=== PATIENT | male | born 1970 | race Hispanic/Latino ===

== ENCOUNTER 2019-06-27 13:00 | Observation (INO) | payer OTHER ==
[2019-06-27] VITALS (7 sets, daily range): BP systolic 104–126; BP diastolic 46–72
--- NOTE | 2019-06-27 13:00 | NUR ---
PT TO ROOM VIA EMS
--- NOTE | 2019-06-27 13:31 | NUR ---
DR FORD AT BEDSIDE FOR ASSESSMENT; PT C/O ABD PAIN RATING 10 OUT OF 10; GAURDS X 2 AT [facility]; MONITORING DEVICES IN PLACE; CALL LIGHT WITHIN REACH; WILL CONTINUE TO MONITOR
[2019-06-27 13:54] LABS: HEMATOCRIT 41.2 % (39.0-50.0); HEMOGLOBIN 14.2 g/dl (14.0-18.0); IMMATURE GRANULOCYTES 0.6 % (0.0-5.0); MEAN CELL VOLUME 88.2 fL CALC (80.0-100.0); MEAN CORPUSCULAR HGB 30.4 pG CALC (26.0-32.0); MEAN CORPUSCULAR HGB CONC 34.5 g/L CALC (32.0-36.0); NEUT# 14.4 thou/uL (1.82-7.42); RED BLOOD COUNT 4.67 mill/uL (4.70-6.10); RED CELL DISTRI WIDTH 12.2 % (11.5-15.5)
[2019-06-27 14:11] LABS: ALBUMIN 4.1 g/dL (3.2-5.0); ALKALINE PHOSPHATASE 104 u/l (38-126); AMYLASE 71 u/l (30-110); ANION GAP 17 (6-22 (CALC)); BILIRUBIN, TOTAL 0.8 mg/dL (0.0-1.4); BUN 7 mg/dL (9-20); BUN/CREATININE RATIO 11 (12-20 (CALC)); CARBON DIOXIDE 20 mmol/l (22-30); CHLORIDE 95 mmol/l (95-108); CREATININE 0.7 mg/dL (0.7-1.3); GFR > 60 ML/MIN (>=60 (CALC)); GFR FOR AFR.AMER. > 60 ML/MIN (>=60 (CALC)); LIPASE 31 u/l (23-300); POTASSIUM 3.8 mmol/l (3.5-5.1); SGOT/AST 29 u/l (17-59); SODIUM 128 mmol/l (137-146); TOTAL PROTEIN 7.7 g/dL (6.3-8.2)
[2019-06-27 14:30] LABS: URINE BILIRUBIN - DIPSTICK NEGATIVE (NEGATIVE); URINE BLOOD DIPSTICK NEGATIVE (NEGATIVE); URINE COLOR YELLOW; URINE GLUCOSE - DIPSTICK NEGATIVE (NEGATIVE); URINE KETONE 40 mg/dL (NEGATIVE); URINE LEUK ESTERASE NEGATIVE (NEGATIVE); URINE NITRITE - DIPSTICK NEGATIVE (Negative); URINE PROTEIN - DIPSTICK NEGATIVE (NEG-TRACE); URINE SPECIFIC GRAVITY 1.015; URINE UROBILINOGEN - DIPSTICK 0.2 E.U./dL (0.2)
--- NOTE | 2019-06-27 14:30 | NUR ---
PT RESTING ON STRETCHER; NO S/S OF DISTRESS NOTED; VSS; GAURDS X 2 AT BEDSIDE; CALL LIGHT WITHIN REACH; WILL CONTINUE TO MONITOR
--- NOTE | 2019-06-27 15:30 | NUR ---
PT ASSISTED TO USE OF URINAL, 900ML OF CLEAR YELLOW URINE NOTED; VSS; GAURDS X2 AT BEDSIDE; CALL LIGHT WITHIN REACH; WILL CONTINUE TO MONITOR
--- NOTE | 2019-06-27 16:30 | NUR ---
PT RESTING ON STRETCHER; NO S/S OF DISTRESS NOTED; PT DENIES ANY NEEDS OR PAIN AT THIS TIME; GAURDS AT BEDSIDE; CALL LIGHT WITHIN REACH; WILL COONTINUE TO MONITOR
--- NOTE | 2019-06-27 17:30 | NUR ---
PT PREPARED FOR SX; CLOTHES REMOVED AND GOWN APPLIED; JEWLERY REMOVED; PT INFORMED OF POC
--- NOTE | 2019-06-27 17:58 | NUR ---
OR TEAM AT BEDSIDE; REPORT GIVEN
--- NOTE | 2019-06-27 18:07 | NUR ---
PT OUT OF ED WITH OR TEAM; PT IN STABLE CONDITION AT THIS TIME
--- NOTE | 2019-06-27 20:55 | NUR ---
PT. ARRIVED TO THE FLOOR VIA STRETCHER ACCOMPANIED BY OR NURSE AND GUARDS X2 @2024. ORIENTED TO ROOM,CALL LIGHT, AND POC AND VERBALIZES UNDERSTANDING. SCD'S APPLIED TO BLE. VSS. IV SITE PATENT TO RFA AND LR INFUSING. PT. DENIES PAIN AT THIS TIME. X3 SURGICAL PUNCTURES NOTED TO ABDOMEN WITH DERMABOND INTACT. ICE CHIPS PROVIDED WILL ASSESS HOW HE TOLERATES THIS. VOIDED 450MLS OF URINE IN URINAL. SHACKLE TO RIGHT WRIST NOTED. INSTRUCTED PT. TO CALL FOR ANY AND ALL NEEDS. CALL LIGHT IS IN REACH. WILL CONTINUE TO MONITOR.
--- NOTE | 2019-06-27 22:00 | NUR ---
PT. RESTING IN BED WITH EYES CLOSED; RESP. EVEN AND UNLABORED. CALL LIGHT IS IN REACH.
--- NOTE | 2019-06-27 23:56 | NUR ---
PT. RESTING IN BED WITH NO DISTRESS NOTED; RESP. EVEN AND UNLABORED. GUARDS IN AT BEDSIDE X2. CLEAR LIQUIDS GIVEN TO PT. WILL SEE IF HE CAN TOLERATE THEM TO ADVANCE DIET. SCHED MEDS GIVEN. EDUCATION GIVEN ON INCENTIVE SPIROMETER AND PT. PULLING 750 AND DID 10REPS AT THIS TIME. GOAL SET TO 1000. URINAL EMPTIED. CALL LIGHT IS IN REACH.
--- NOTE | 2019-06-28 02:31 | NUR ---
RESTING IN BED WITH EYES OPEN. NO DISTRESS NOTED; VOICES NO CONCERNS. URINAL EMTPIED. GUARDS AT BEDSIDE. CALL LIGHT IS IN REACH.
[2019-06-28 03:10] VITALS: BP 103/63
--- NOTE | 2019-06-28 03:11 | NUR ---
VSS. NO DISTRESS NOTED;DENIES NEEDS/PAIN. URINAL EMPTIED. GUARDS REMAIN AT BEDSIDE X2. WILL CONTINUE TO MONITOR. CALL LIGHT IS IN REACH.
--- NOTE | 2019-06-28 05:35 | NUR ---
PT. RESTING IN BED, TOLERATED PO FLUIDS WELL THROUGHOUT THE NIGHT. SCHED MEDS GIVEN. INCENTIVE SPIROMETER AND CALL LIGHT IN REACH.
--- NOTE | 2019-06-28 06:10 | NUR ---
PT. AMBULATED DOWN THE 60'S AND 70'S HALLWAY WITH STEADY GAIT WITH THIS EVP MARKETING AND GUARDS X2. PT. TOLERATED WELL.
[2019-06-28 07:31] VITALS: BP 118/76
--- NOTE | 2019-06-28 07:31 | NUR ---
PT RESTING IN BED. GUARDS AT BEDSIDE. A&O X3. NO SIGNS OF DISTRESS. INCISION SITES CDI. NO PAIN AT THIS TIME. IS AT BEDSIDE. EXPLAINED TO PT IMPORTANCE OF CONTINUING IS EXERCISES. EXPLAINED TO THE PT THAT HE NEEDS TO ABULATE IN THE HALLWAYS. DISCUSSED POC. ASSESSMENT COMPLETED AT THIS TIME. CALL LIGHT IN REACH. CONTINUE TO MONITOR.
--- NOTE | 2019-06-28 10:00 | NUR ---
PT AMBULATING HALLWAY WITH COMMUNICATIONS PROGRAMMER AND GUARDS AT SIDE.
--- NOTE | 2019-06-28 12:47 | NUR ---
PT RESTING IN BED. GUARDS AT BEDSIDE. NO NEEDS AT THIS TIME. CONTINUE TO MONITOR.
--- NOTE | 2019-06-28 12:55 | NUR ---
DUANE AT BEDSIDE DISCUSSING POC. PT VERBALIZED UNDERSTANDING OF INSTRUCTIONS THAT WERE GIVEN.
--- NOTE | 2019-06-28 13:01 | NUR ---
AT BEDSIDE, DISCUSSED PLANS FOR DISCHARGE, PT VERBALIZED UNDERSTANDING, MAVIS PENA TRANSLATED.
[2019-06-28] MEDS ORDERED: KETOROLAC10 MG PO (13:05)
--- NOTE | 2019-06-28 16:13 | NUR ---
DISCUSSED D/C INSTRUCTIONS WITH THE PATIENT IN [place]. PT VERBALIZED UNDERSTANDING. D/C INSTRUCTIONS ALSO DISCUSSED WITH GUARDS.
[2019-06-28 16:29] VITALS: BP 115/65
--- NOTE | 2019-06-28 16:31 | NUR ---
Discharge instructions given. Patient verbalizes understanding of same. Discharged in stable condition, [facility]. All belongings sent with pt.
== END 2019-06-28 16:32 | DRG 343 ==
LOC: ED 13:00 → EDBD 13:00 → ED 13:39 → ED-I 17:00 → ED 17:09 → EDBD 17:10 → MS2 17:10
PROVIDERS: ADMIT Surgery; ATTEND Surgery
PROC: 0DTJ4ZZ Resection of Appendix, Percutaneous Endoscopic Approach (ICD-10-PCS; principal; 2019-06-27)
DX: K35.80 Unspecified acute appendicitis (principal)
CPT/HCPCS: G0378; J0131; J2710

== ENCOUNTER 2022-12-12 14:47 | Emergency (ER) | payer OTHER ==
[~2022-12-12] VITALS: Ht 152.4 cm; Wt 74.8 kg
[~2022-12-12 14:47] MED LIST: KETOROLAC10 MG PO
[2022-12-12] MEDS ORDERED: KEFLEX500 MG PO (18:06)
[2022-12-12] MEDS ORDERED: NAPROXEN500 MG PO (18:06)
[2022-12-12 18:42] VITALS: BP 132/70
== END 2022-12-12 18:30 | DRG 605 ==
LOC: ED 14:47
DX: S61.211A Laceration without foreign body of left index finger without damage to nail, initial encounter (principal); W31.9XXA Contact with unspecified machinery, initial encounter; Y92.149 Unspecified place in prison as the place of occurrence of the external cause